=== PATIENT | male | born 1970 | race Asian ===

== ENCOUNTER 2025-04-26 11:11 | Outpatient (CLI) | payer BC ==
[2025-04-26] MEDS ORDERED: Iopamidol 300 61% 100 ML VIAL FS ONE (12:48)
== END 2025-04-26 11:12 | disposition home or self-care (01) ==
LOC: CSHCT 11:11
PROVIDERS: ATTEND Family Medicine
DX: R91.8 Other nonspecific abnormal finding of lung field (principal); R59.0 Localized enlarged lymph nodes; J98.4 Other disorders of lung
CPT/HCPCS: 71260